=== PATIENT | female | born 1955 | race African-American/Black ===

== ENCOUNTER 2017-06-21 14:56 | Inpatient (IN) | payer MEDICARE, MEDICAID ==
[~2017-06-21] VITALS: Ht 167.6 cm; Wt 50.3 kg
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
--- NOTE | 2017-06-21 15:22 | NUR ---
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
[2017-06-21] MEDS ORDERED: BRIM5DRO EACHEYE (15:48)
[2017-06-21] MEDS ORDERED: OMEP40CA37 PO (15:48)
[2017-06-21] MEDS ORDERED: INSU100V7 SQ (15:48)
[2017-06-21] MEDS ORDERED: PILO15DR7 EACHEYE (15:48)
[2017-06-21] MEDS ORDERED: LINA145C PO (15:48)
[2017-06-21] MEDS ORDERED: HYDR25TA4 PO (15:48)
[2017-06-21] MEDS ORDERED: ASPI-991 PO (15:48)
[2017-06-21] MEDS ORDERED: DOCU-25 PO (15:48)
[2017-06-21] MEDS ORDERED: BISA10SU8 RC (15:48)
[2017-06-21] MEDS ORDERED: CLON0.1T PO (15:48)
[2017-06-21] MEDS ORDERED: ACET-868 PO (15:48)
[2017-06-21] MEDS ORDERED: AMIN30LI4 PO (15:48)
[2017-06-21] MEDS ORDERED: POLY15DR40 EACHEYE (15:48)
[2017-06-21] MEDS ORDERED: DORZ10DR11 EACHEYE (15:48)
[2017-06-21] MEDS ORDERED: INSU100V11 SQ (15:48)
[2017-06-21] MEDS ORDERED: LOSA50TA21 PO (15:48)
[2017-06-21] MEDS ORDERED: NIFE30TA2 PO (15:48)
[2017-06-21] MEDS ORDERED: CARV12.5 PO (15:48)
[2017-06-21] MEDS ORDERED: TRAV5DRO EACHEYE (15:48)
[2017-06-21] MEDS ORDERED: MULT1TAB11 PO (15:48)
--- NOTE | 2017-06-21 16:29 | NUR ---
REPORT GIVEN TO ODIN SAMSON FOR [facility] MS [id number]
[2017-06-21] MEDS ORDERED: HYDROCODONE/APAP 5/325MG 1 EACH TABLET PO PRN (16:30)
[2017-06-21] MEDS ORDERED: BISACODYL SUPP (10 MG) 10 MG/SUPP.RECT SUPP.RECT RC PRN (16:30)
[2017-06-21] MEDS ORDERED: ONDANSETRON HCL/PF 4 MG/2 ML VIAL IVP PRN (16:30)
[2017-06-21] MEDS ORDERED: ZOLPIDEM TARTRATE 5 MG TABLET PO PRN (16:30)
[2017-06-21] MEDS ORDERED: MAGNESIUM HYDROXIDE 30 ML UDC PO PRN (16:30)
[2017-06-21] MEDS ORDERED: ACETAMINOPHEN 325 MG TABLET PO PRN (16:30)
[2017-06-21] MEDS ORDERED: CLONIDINE HCL 0.1 MG TABLET PO PRN (16:30)
[2017-06-21] MEDS ORDERED: MAG HYDROX/AL HYDROX/SIMETH 30 ML UDC PO PRN (16:30)
[2017-06-21] MEDS ORDERED: Z GUARD REMEDY 2 OZ OINT TP PRN (16:30)
--- NOTE | 2017-06-21 16:45 | NUR ---
RN NOTES PT IS ALERT AND AWAKE, NON-VERBAL. ALL EXTREMITIES ARE CONTRACTED. VITAL SIGNS ARE WNL. PT ON RA, RESPIRATIONS ARE EVEN AND UNLABORED. SAFETY MEASURES ARE IN PLACE, CALL LIGHT IS IN REACH. WILL CONTINUE TO MONITOR.
[2017-06-21 17:00] VITALS: BP 125/68
[2017-06-21] MEDS: PILOCARPINE 2% OPTH DROP 15 ML BOTTLE EACHEYE SCH (17:00)
[2017-06-21] MEDS: DOCUSATE SODIUM 100 MG CAPSULE PO SCH (18:08)
[2017-06-21] MEDS: BLOOD SUGAR DIAGNOSTIC 1 EACH STRIP IN SCH ×2 (18:08→20:50)
[2017-06-21] MEDS: TIMOLOL MAL/DORZOLAM HCL OPHTH 10 ML BOTTLE EACHEYE SCH (18:09)
[2017-06-21] MEDS: ENOXAPARIN SODIUM 40 MG/0.4 ML DISP.SYRIN SQ SCH (18:16)
[2017-06-21] MEDS: INSULIN REGULAR, HUMAN 100 UNIT/ML 3 ML VIAL SQ PRN ×2 (18:17→20:46)
--- NOTE | 2017-06-21 18:56 | NUR ---
RN NOTES PT IS RESTING IN BED WITH HOB UP, NO SIGNS OF DISTRESS NOTED. PT ON RA, RESPIRATIONS ARE EVEN AND UNLABORED. ALL MEDS WERE GIVEN ORDERED. LAST ACCUCHECK WAS 238, 6 UNITS OF REGULAR INSULIN GIVEN. PT SHOWED DIFFICULTY WHEN EATING SOFT DIET ORDERED FOR DINNER DUE TO MISSING TEETH. PUREED DIET ORDERED FOR BREAKFAST. PT KEPT CLEAN AND DRY. SAFETY MEASURES ARE IN PLACE, CALL LIGHT IS IN REACH. WILL ENDORSE TO TANNING WHEEL OPERATOR RN FOR CONTINUITY OF CARE.
--- NOTE | 2017-06-21 19:51 | NUR ---
RECEIVED IN ROOM PT IS ALERT AND AWAKE, NON-VERBAL. ALL EXTREMITIES ARE CONTRACTED. VITAL SIGNS ARE WNL. PT ON RA, RESPIRATIONS ARE EVEN AND UNLABORED. NO FACIAL GRICIMING NOTED CALL LIGHT IS IN REACH. WILL CONTINUE TO MONITOR.FOR SAFETY AND FALL PRECAUTIONS.
[2017-06-21] MEDS: POLYVINYL ALCOHOL 15 ML BOTTLE EACHEYE PRN (20:49)
[2017-06-21] MEDS: LATANOPROST EYE DROP 0.005% 2.5 ML BOTTLE EACHEYE SCH (20:49)
[2017-06-21] MEDS: BRIMONIDINE TARTRATE OPHT SOLN 5 ML BOTTLE EACHEYE SCH (20:49)
[2017-06-21] MEDS ORDERED: BRIMONIDINE TARTRATE OPHT SOLN 5 ML BOTTLE EACHEYE SCH (21:00)
[2017-06-21] MEDS ORDERED: INSULIN DETEMIR 100 UNIT/ML CARTRIDGE SQ SCH (22:00)
[2017-06-21] MEDS ORDERED: TRAVOPROST (BENZALKONIUM) 2.5 ML BOTTLE EACHEYE SCH (22:00)
[2017-06-22 06:29] LABS: BASOPHILS % (AUTO) 0.3 % (0.0-2.0); EOSINOPHILS # (AUTO) 0.4 /CMM (0.0-0.7); EOSINOPHILS % (AUTO) 4.4 % (0.0-6.0); HEMATOCRIT 40 % (33-45); HEMOGLOBIN 12.9 g/dL (11.5-14.8); LYMPHOCYTES # (AUTO) 2.3 /CMM (0.8-4.8); LYMPHOCYTES % (AUTO) 24.3 % (20.0-44.0); MEAN CORPUSCULAR HEMOGLOBIN 26 PG (26.0-33.0); MEAN CORPUSCULAR HGB CONC 32 g/dl (31.0-36.0); MEAN CORPUSCULAR VOLUME 81 fL (82-100); MONOCYTES # (AUTO) 0.8 /CMM (0.1-1.30); MONOCYTES % (AUTO) 7.9 % (2.0-12.0); NEUTROPHILS # (AUTO) 6.1 /CMM (1.8-8.9); NEUTROPHILS % (AUTO) 63.1 % (43.0-81.0); PLATELET COUNT (AUTO) 190 /CMM (150-450); RDW COEFFICIENT OF VARIATION 15.1 (11.5-15.0); WHITE BLOOD COUNT (AUTO) 9.7 K/uL (4.3-11.0)
[2017-06-22] MEDS: BLOOD SUGAR DIAGNOSTIC 1 EACH STRIP IN SCH ×4 (06:30→21:22)
[2017-06-22 07:16] LABS: THYROID STIMULATING HORMONE 1.043 uIU/mL (0.358-3.74)
--- NOTE | 2017-06-22 07:20 | NUR ---
LOW BLOOD SUGAR IS IN ERROR READING WRONG RECHECK AGAIN ACTUAL BLOOD SUGAR IS 119 NO COVERAGE GIVEN
--- NOTE | 2017-06-22 07:38 | NUR ---
MS/RN OPENING NOTE PATIENT RECEIVED IN BED IN STABLE CONDITION. A/O X 1. NON VERBAL. NO SIGNS OF ACUTE DISTRESS. NO COMPLAIN OF PAIN OR DISCOMFORT. ALL NEEDS ATTENDED TO. CALL LIGHT WITHIN REACH. WILL CONTINUE TO MONITOR TO ENSURE SAFETY.
--- NOTE | 2017-06-22 07:49 | NUR ---
MS/RN LOW GLUCOSE MEI FROM LAB RELAYED PATIENT'S LOW GLUCOSE OF 35. ASSESSED PATIENT AT THIS TIME, EYES, NO FACIAL GRIMACING, NON VERBAL, NO SIGNS OF ACUTE DISTRESS. FINGERSTICK BLOOD GLUCOSE READING 148 AT THIS TIME. WILL NOTIFY DOCTOR AND CONTINUE TO MONITOR TO ENSURE SAFETY.
[2017-06-22 08:00] VITALS: BP 137/77
[2017-06-22] MEDS: DOCUSATE SODIUM 100 MG CAPSULE PO SCH ×2 (08:55→16:26)
[2017-06-22] MEDS: LOSARTAN POTASSIUM 50 MG TABLET PO SCH (08:56)
[2017-06-22] MEDS: ASPIRIN EC 81 MG TABLET.DR PO SCH (08:56)
[2017-06-22] MEDS: NIFEdipine XL (30MG) 30 MG TAB PO SCH (08:56)
[2017-06-22] MEDS: CARVEDILOL 12.5 MG TABLET PO SCH (08:57)
[2017-06-22] MEDS: HYDROCHLOROTHIAZIDE 25 MG TABLET PO SCH (08:57)
[2017-06-22] MEDS: TIMOLOL MAL/DORZOLAM HCL OPHTH 10 ML BOTTLE EACHEYE SCH ×2 (08:59→16:27)
[2017-06-22] MEDS: BRIMONIDINE TARTRATE OPHT SOLN 5 ML BOTTLE EACHEYE SCH ×2 (08:59→21:13)
[2017-06-22] MEDS: POLYVINYL ALCOHOL 15 ML BOTTLE EACHEYE PRN ×2 (08:59→16:27)
[2017-06-22] MEDS: PILOCARPINE 2% OPTH DROP 15 ML BOTTLE EACHEYE SCH ×2 (09:00→17:53)
--- NOTE | 2017-06-22 10:00 | NUR ---
MS/RN SEEN BY DR ALCANTARA SEEN BY DR ALCANTARA AND MADE AWARE PATIENT NOTED WITH EPISODE OF LOW FINGERSTICK ACCUCHECK AND LOW BLOOD GLUCOSE LEVEL IN PREVIOUS SHIFT. PER DR ALCANTARA PLEASE CHANGE LEVEMIR TO 20 UNITS. NOTED AND CARRIED OUT.
[2017-06-22 10:29] LABS: CALCIUM, SERUM 9.1 mg/dL (8.5-10.1); CREATININE 0.7 mg/dL (0.6-1.3); MAGNESIUM 1.8 mg/dL (1.8-2.4); PHOSPHORUS 3.8 mg/dL (2.5-4.9)
[2017-06-22 16:00] VITALS: BP 154/82
--- NOTE | 2017-06-22 18:23 | NUR ---
MS/RN CLOSING NOTE PATIENT IN BED IN STABLE CONDITION. A/O X 1. NON VERBAL, OPEN EYES. NO SIGNS OF ACUTE DISTRESS. NO COMPLAIN OF PAIN OR DISCOMFORT. ALL NEEDS ATTENDED TO. CALL LIGHT WITHIN REACH. WILL ENDORSE TO NEXT SHIFT FOR CONTINUITY OF CARE.
[2017-06-22 20:00] VITALS: BP_SYST 145; BP_DIAS 81; BP_DIAS 98
--- NOTE | 2017-06-22 20:00 | NUR ---
MS/RN OPENING NOTES PATIENT IN BED, AWAKE, CAN OPEN EYES, CAN RESPOND BY VOICE, ALERTX1. REQUIRE EXTENSIVE ASSISTANCE PATIENT OBSERVE CONFUSE AND DISORIENTED, REQUIRING FREQUENT MONITORING, RESPIRATIONS EVEN AND UNLABORED.BED IN LOCK POSITION. WILL CONTINUE MONITORING AND REPORT ANY CHANGES.
[2017-06-22] MEDS: ENOXAPARIN SODIUM 40 MG/0.4 ML DISP.SYRIN SQ SCH (21:14)
[2017-06-22] MEDS: INSULIN REGULAR, HUMAN 100 UNIT/ML 3 ML VIAL SQ PRN (21:33)
[2017-06-22] MEDS: INSULIN DETEMIR 100 UNIT/ML CARTRIDGE SQ SCH (21:34)
[2017-06-22] MEDS: LATANOPROST EYE DROP 0.005% 2.5 ML BOTTLE EACHEYE SCH (21:35)
--- NOTE | 2017-06-22 22:31 | NUR ---
ms/rn notes patient observed grimace, and will give tylenol 650mg for pain
[2017-06-23] MEDS: BLOOD SUGAR DIAGNOSTIC 1 EACH STRIP IN SCH ×4 (05:58→21:03)
[2017-06-23] MEDS: DEXTROSE 50%-WATER 50 ML DISP.SYRIN IV PRN ×2 (06:14→21:12)
--- NOTE | 2017-06-23 06:19 | NUR ---
ms/rn notes patient bs check at 45 , patient alert, can open eyes and can swallo, given pureed orange juice and re check after 15 min, result 46. administer and start iv on right fore arm gauge 20. prn 50% dextrose injection given will recheck in 20 min for bs and inform md regarding patient condition and result of intervention. will monitor.
--- NOTE | 2017-06-23 07:30 | NUR ---
ms/rn contatced left message regarding patient condition for low blood sugar checked at 46 on sliding scale in am but not registered . recheck with blood sugar over 180.
--- NOTE | 2017-06-23 07:38 | NUR ---
PATIENT ABLE TO SLEEP DURING THE NIGHT, RESTING COMFORTABLY IN BED, ABLE TO VERBALIZE NEEDS, ASSIST WITH CARE AND BRP. DENIES PAIN. COOPERATIVE TO CARE. BED ALRM ON, BED IN LOCK POSITION. CALL LIGHTW WITHIN REACH, WILL CONTINUE TO MONITOR,
--- NOTE | 2017-06-23 07:57 | NUR ---
MS RN OPENING NOTE RECEIVED BEDSIDE SBAR REPORT. PATIENT IS ASLEEP, EASILY AWAKEN. NON-VERBAL. INCONTINENT. PRESENTS WITH UNLABORED BREATHING. CHEST RISING EQUALLY BILATERALLY. NO S/S OF DISTRESS. DENIES PAIN/DISCOMFORT AT THIS TIME. PATIENT IS IN BED, BED IS LOCKED IN LOWEST POSITION, SIDE RAILS UP X3, BED ALARM IS ON. CALL LIGHT WITHIN REACH. PATIENT IS EDUCATED TO USE THE CALL LIGHT TO CALL FOR ASSISTANCE. UNABLE TO VERIFY PATIENT'S UNDERSTANDING. ALL NEEDS ARE MET AT THIS TIME. WILL CONTINUE TO ASSESS/MONITOR THROUGHOUT THE SHIFT.
[2017-06-23 08:00] VITALS: BP_SYST 120; BP_DIAS 60; BP_DIAS 77
[2017-06-23] MEDS: LOSARTAN POTASSIUM 50 MG TABLET PO SCH (09:00)
[2017-06-23] MEDS: HYDROCHLOROTHIAZIDE 25 MG TABLET PO SCH (09:00)
[2017-06-23] MEDS: CARVEDILOL 12.5 MG TABLET PO SCH (09:00)
[2017-06-23] MEDS: ASPIRIN EC 81 MG TABLET.DR PO SCH (09:34)
[2017-06-23] MEDS: DOCUSATE SODIUM 100 MG CAPSULE PO SCH ×2 (09:34→17:51)
[2017-06-23] MEDS: TIMOLOL MAL/DORZOLAM HCL OPHTH 10 ML BOTTLE EACHEYE SCH ×2 (09:37→17:53)
[2017-06-23] MEDS: PILOCARPINE 2% OPTH DROP 15 ML BOTTLE EACHEYE SCH ×2 (09:38→17:51)
[2017-06-23] MEDS: POLYVINYL ALCOHOL 15 ML BOTTLE EACHEYE PRN ×2 (09:38→17:52)
[2017-06-23] MEDS: BRIMONIDINE TARTRATE OPHT SOLN 5 ML BOTTLE EACHEYE SCH ×2 (09:38→20:54)
[2017-06-23] MEDS: NIFEdipine XL (30MG) 30 MG TAB PO SCH (09:42)
--- NOTE | 2017-06-23 09:43 | NUR ---
MS RN NOTE PATIENT'S BLOOD PRESSURE IS NOTED SLIGHTLY DECREASED AT 115/65 MM HG WITH A HR 63BPM. LOSARTAN, HYDROCHLOROTHIAZIDE AND CARVEDILOL ARE NOT ADMINISTERED AT THIS TIME. EXTENDED RELEASE NIFEDIPINE 30 MG IS ADMINISTERED ORDERED.
[2017-06-23] MEDS: INSULIN REGULAR, HUMAN 100 UNIT/ML 3 ML VIAL SQ PRN ×3 (14:38→21:27)
[2017-06-23 16:00] VITALS: BP_SYST 135; BP_SYST 139; BP_DIAS 74
--- NOTE | 2017-06-23 19:03 | NUR ---
MS RN CLOSING NOTE GAVE BEDSIDE SBAR REPORT TO ODIN RIVERS. PATIENT IS ASLEEP, EASILY AWAKEN. NON-VERBAL. INCONTINENT. PRESENTS WITH UNLABORED BREATHING. CHEST RISING EQUALLY BILATERALLY. NO S/S OF DISTRESS. DENIES PAIN/DISCOMFORT AT THIS TIME. PATIENT IS IN BED, BED IS LOCKED IN LOWEST POSITION, SIDE RAILS UP X3, BED ALARM IS ON. CALL LIGHT WITHIN REACH. PATIENT IS EDUCATED TO USE THE CALL LIGHT TO CALL FOR ASSISTANCE. UNABLE TO VERIFY PATIENT'S UNDERSTANDING. ALL NEEDS ARE MET AT THIS TIME. ENDORSED TO THE BUSINESS CONTINUITY SPECIALIST FOR [facility].
[2017-06-23 20:00] VITALS: BP 166/78
[2017-06-23 20:45] VITALS: BP 139/75
[2017-06-23] MEDS: ENOXAPARIN SODIUM 40 MG/0.4 ML DISP.SYRIN SQ SCH (20:53)
--- NOTE | 2017-06-23 21:00 | NUR ---
RN NOTES PATIENT IN BED, ALERT AND ORIENTED X1, CALM, NO SOB, NO RESPIRATORY DISTRESS, TOLERATING ROOM AIR, SPO2 95%, NOT IN APPARENT PAIN, NON-VERBAL, RIGHT FOREARM SALINE LOCK IS PATENT AND SECURED WITH DRESSING. QUADRIPLEGIC, KEPT SAFE AND COMFORTABLE, CALL LIGHT WITHIN REACH.
[2017-06-23] MEDS: LATANOPROST EYE DROP 0.005% 2.5 ML BOTTLE EACHEYE SCH (21:03)
--- NOTE | 2017-06-23 21:16 | NUR ---
RN NOTES PERFORMED ACCUCHECK BG 44 MG/DL, GIVEN DEXTROSE 50% PER PROTOCOL. PATIENT IS ALERT AND AWAKE, NO DIAPHORESIS. WILL RE CHECK BG AFTER 30 MINUTES, WILL PROVIDE SNACKS
[2017-06-23] MEDS: INSULIN DETEMIR 100 UNIT/ML CARTRIDGE SQ SCH (21:26)
--- NOTE | 2017-06-23 22:00 | NUR ---
RN NOTES REPEAT ACCUCHECK AFTER GIVING DEXTROSE 50% IS 141MG/DL WILL CONTINUE TO MONITOR
[2017-06-23 22:30] VITALS: BP 135/71
--- NOTE | 2017-06-23 22:30 | NUR ---
RN NOTES RE-CHECK BP 135/71 HR 60, CLONIDINE NOT INDICATED AT THIS TIME
[2017-06-24] MEDS: BLOOD SUGAR DIAGNOSTIC 1 EACH STRIP IN SCH ×3 (06:39→18:10)
[2017-06-24] MEDS: INSULIN REGULAR, HUMAN 100 UNIT/ML 3 ML VIAL SQ PRN ×3 (06:57→18:16)
--- NOTE | 2017-06-24 07:09 | NUR ---
RN NOTES PATIENT IN BED, ALERT AND AWAKE, NON-VERBAL, NO SOB, NO DISTRESS, NOT IN APPARENT PAIN, M/B NO FACIAL GRIMACING, NO RESTLESSNESS, GOOD PERINEAL CARE RENDERED, KEPT SAFE AND COMFORTABLE, CALL LIGHT WITHIN REACH.
--- NOTE | 2017-06-24 07:36 | NUR ---
MS RN OPENING NOTES RECEIVED PT FROM NIGHTSHIFT NURSE IN STABLE CONDITION. PT IS A/O X1 AND NONVERBAL. SHE IS RESPONSIVE TO HER NAME AND LIGHT TOUCH. OPENS EYES SPONTANEOUSLY. NO SOB OR SIGNS OF DISTRESS NOTED. PT IS ON RA AND SATING WELL @98%. IV NOTED ON RIGHT FA 22G TO BE PATENT AND INTACT. NO REDNESS OR SIGNS OF INFILTRATION NOTED. BED IN LOW LOCKED POSITION, SIDE RAILS UP X3, CALL LIGHT WITHIN REACH. WILL CONTINUE TO MONITOR.
[2017-06-24 08:00] VITALS: BP 134/59
[2017-06-24] MEDS: DOCUSATE SODIUM 100 MG CAPSULE PO SCH ×2 (08:17→18:10)
[2017-06-24] MEDS: ASPIRIN EC 81 MG TABLET.DR PO SCH (08:17)
[2017-06-24] MEDS: LOSARTAN POTASSIUM 50 MG TABLET PO SCH (08:17)
[2017-06-24] MEDS: PILOCARPINE 2% OPTH DROP 15 ML BOTTLE EACHEYE SCH ×2 (08:19→18:10)
[2017-06-24] MEDS: TIMOLOL MAL/DORZOLAM HCL OPHTH 10 ML BOTTLE EACHEYE SCH ×2 (08:19→18:11)
[2017-06-24] MEDS: BRIMONIDINE TARTRATE OPHT SOLN 5 ML BOTTLE EACHEYE SCH (08:19)
--- NOTE | 2017-06-24 08:47 | NUR ---
WOUND CARE CONSULT: PT PRESENTS WITH SACRAL SCARRING, DRY ABRASIONS TO RT FOOT AND RT UPPER BACK AREAS. LOWER LEG CONTRACTURES NOTED. ALL SKIN PROTECTION MEASURES IN PLACE AND DISCUSSED WITH NURSING STAFF. MATY ISOFLEX LOW AIRLOSS BED TO BE PLACED. WILL SEE PRN. [place]EE[place] IN AGREEMENT WITH PLAN OF CARE. Addendum: 06/24/17 at 0849 by SON CHAMBERS WNDNU Amended: Links added.
[2017-06-24] MEDS: HYDROCHLOROTHIAZIDE 25 MG TABLET PO SCH (09:00)
[2017-06-24] MEDS: NIFEdipine XL (30MG) 30 MG TAB PO SCH (09:00)
[2017-06-24] MEDS: CARVEDILOL 12.5 MG TABLET PO SCH (09:00)
[2017-06-24] MEDS ORDERED: INSU100I19 SQ (12:30)
[2017-06-24 16:00] VITALS: BP 156/84
--- NOTE | 2017-06-24 18:44 | NUR ---
MS RN NOTES PT REMAINS STABLE. CURRENTLY AWAITING AMBULANCE TO TRANSFER PT TO [facility]. ALL DISCHARGE PAPERWORK COMPLETED AND SIGNED BY MYSELF AND JAYA THE FELLOW RN. REPORT GIVEN TO RECEIVING NURSE. PT BELONGINGS VERIFIED. WILL ENDORSE TO NIGHTSHIFT NURSE TO CARRY OUT D/C
--- NOTE | 2017-06-24 19:29 | NUR ---
MS RN NOTES PT DISCHARGED FROM UNIT IN STABLE CONDITION. SHE LEFT WILL ALL BELONGINGS AND PAPERWORK. PT LEFT VIA AMBULANCE TRANSPORT
== END 2017-06-24 19:21 | DRG 917 ==
LOC: ER 14:59 → MEDSG2 16:01
DX: T59.811A Toxic effect of smoke, accidental (unintentional), initial encounter (principal); R53.2 Functional quadriplegia; E11.649 Type 2 diabetes mellitus with hypoglycemia without coma; I11.0 Hypertensive heart disease with heart failure; I50.9 Heart failure, unspecified; I69.354 Hemiplegia and hemiparesis following cerebral infarction affecting left non-dominant side; R47.01 Aphasia; J70.5 Respiratory conditions due to smoke inhalation; Y92.129 Unspecified place in nursing home as the place of occurrence of the external cause; X08.8XXA Exposure to other specified smoke, fire and flames, initial encounter; Z79.899 Other long term (current) drug therapy; Z79.82 Long term (current) use of aspirin; Z79.4 Long term (current) use of insulin
CPT/HCPCS: 36415; 80048-TC; 80061-TC; 82962-TC; 83735-TC; 84100-TC; 84443-TC; 85025-TC; 87081-TC; A4606; J1650; J1815; Z7610